=== PATIENT | male | born 1955 | race Caucasian/White ===

== ENCOUNTER 2023-04-17 05:44 | Day surgery (SDC) | payer MEDICARE, BC ==
[2023-04-15 10:39] VITALS: BMI 31.0
[2023-04-17] MEDS ORDERED: fentaNYL 50 mcg/mL 1 mL Vial ONE ×5 (06:25→09:11)
[2023-04-17] MEDS ORDERED: Famotidine/PF 20 mg/2ml Vial ONE (06:25)
[2023-04-17] MEDS ORDERED: Bupivacaine HCl 0.5%/Epinephrine 1:200,000/PF 30 ml Vial ONE (06:46)
[2023-04-17] MEDS ORDERED: Sodium Chloride 0.9% 100 ML ONE (07:26)
[2023-04-17] MEDS ORDERED: CEFAZOLIN 2 GM VIAL ONE (07:26)
[2023-04-17] MEDS ORDERED: Ketorolac Tromethamine 30 MG/ML VIAL ONE (07:32)
[2023-04-17] MEDS ORDERED: Ondansetron PF 4 MG/2 ML Vial ONE (07:32)
[2023-04-17] MEDS ORDERED: Metoprolol Tartrate 5 MG/5 ML VIAL ONE (07:32)
[2023-04-17] MEDS ORDERED: PROPOFOL 200 MG/20 ML VIAL ONE (07:32)
[2023-04-17] MEDS ORDERED: Dexamethasone 20 MG/5 ML VIAL ONE (07:32)
[2023-04-17] MEDS ORDERED: Lidocaine 1% PF 5 ML VIAL ONE (07:32)
[2023-04-17] MEDS ORDERED: Bupivacaine/Epinephrine 0.25% 30 ML VIAL ONE (07:42)
[2023-04-17] MEDS ORDERED: HYDROcodone/Acetaminophen 5/325 mg Tablet ONE (10:02)
== END 2023-04-17 10:20 | disposition home or self-care (01) ==
LOC: SDC 05:44
PROVIDERS: ATTEND Surgery
PROC: 0WUF0JZ Supplement Abdominal Wall with Synthetic Substitute, Open Approach (ICD-10-PCS; principal; 2023-04-17)
DX: K42.9 Umbilical hernia without obstruction or gangrene (principal); Z79.82 Long term (current) use of aspirin; Z88.2 Allergy status to sulfonamides; Z88.6 Allergy status to analgesic agent
CPT/HCPCS: 49591; J3010; C1781; J1100; J1885; J2405; J2704; J3490; S0028

== ENCOUNTER 2025-08-03 11:18 | Outpatient (CLI) | payer MEDICARE | END 2025-08-03 11:19 | disposition home or self-care (01) | LOC: SCSRAD 11:18 | PROVIDERS: ATTEND Family Medicine | DX: M54.50 Low back pain, unspecified (principal); M54.6 Pain in thoracic spine; G89.4 Chronic pain syndrome | CPT/HCPCS: 72080 ==

== ENCOUNTER 2025-09-14 09:30 | Outpatient (CLI) | payer MEDICARE | END 2025-09-14 09:31 | disposition home or self-care (01) | LOC: BICMRI 09:30 | PROVIDERS: ATTEND Physician Assistant | DX: S22.060A Wedge compression fracture of T7-T8 vertebra, initial encounter for closed fracture (principal); S22.059A Unspecified fracture of T5-T6 vertebra, initial encounter for closed fracture | CPT/HCPCS: 72146 ==